=== PATIENT | female | born 1995 | race Caucasian/White ===

== ENCOUNTER 2018-06-20 20:17 | Emergency (ER) | payer OTHER ==
[2018-06-20] MEDS ORDERED: IBUPROFEN 200 MG TAB PO ONE (20:29)
--- NOTE | 2018-06-20 21:16 | EDPHY ---
H & P Time Seen by Provider: 06/20/18 20:53 HPI/ROS: CHIEF COMPLAINT: Left foot pain HISTORY OF PRESENT ILLNESS: 22-year-old female presents with left foot pain. She twisted her foot just prior to arrival and heard a crack. Immediate onset of moderate pain on the medial aspect of the left foot. Unable to ambulate. No other injuries. ROS: No numbness, weakness, excessive bleeding, syncopal episode, other injury. Past Medical/Surgical History: Denies Smoking Status: Never smoked Physical Exam: Alert and oriented, pleasant Extremities: Left foot-tenderness and mild swelling a on the medial aspect of the midfoot, no deformity Skin: Intact Neuro: Motor and sensory intact Vascular: Capillary refill brisk distally. Constitutional: Initial Vital Signs Temperature (C) 36.7 C 06/20/18 20:25 Heart Rate 64 06/20/18 20:25 Respiratory Rate 18 06/20/18 20:25 Blood Pressure 127/82 H 06/20/18 20:25 O2 Sat (%) 99 06/20/18 20:25 O2 Delivery Mode Room Air Allergies/Adverse Reactions: No Known Allergies Allergy (Unverified 06/20/18 20:25) Home Medications: Medication Instructions Recorded Microgestin 21 1.5-30 Tab 06/20/18 Medical Decision Making - Diagnostics Imaging Results: Imaging Impressions Foot X-Ray 06/20/18 20:29 Impression: Negative for fracture. ED Course/Re-evaluation: Parish wrap placed and crutches dispensed. - Data Points Medications Given: Discontinued Medications Ibuprofen (Motrin) 400 mg PO ONCE ONE Stop: 06/20/18 20:30 Last Admin: 06/20/18 21:31 Dose: 400 mg Departure - Departure Disposition: Home, Routine, Self-Care Clinical Impression: Strain of left foot Qualifiers: Encounter type: initial encounter Qualified Code(s): S96.912A - Strain of unspecified muscle and tendon at ankle and foot level, left foot, initial encounter Condition: Good Instructions: Foot Sprain (ED) Additional Instructions: Ibuprofen 600 mg 3 times daily while the pain persists. Keep your foot elevated whenever possible. Use crutches to ambulate while the pain persists. Ice for 20 min every 1-2 hours for swelling and pain. Referrals: Ismael Rahman MD [Medical Doctor] - 5-7 days, if not improved
[2018-06-20 21:38] VITALS: BP 117/79
== END 2018-06-20 21:36 | disposition home or self-care (01) ==
DX: S96.912A Strain of unspecified muscle and tendon at ankle and foot level, left foot, initial encounter (principal); X50.0XXA Overexertion from strenuous movement or load, initial encounter; Y99.8 Other external cause status